=== PATIENT | female | born 1965 | race Caucasian/White ===

== ENCOUNTER 2018-01-10 10:17 | Emergency (ER) | payer OTHER ==
[~2018-01-10] VITALS: Ht 162.6 cm; Wt 165.0 kg
[~2018-01-10 10:17] MED LIST: BENTYL10 MG PO; BUPROPION XL300 MG PO; CLARITIN10 MG PO; LOVASTATIN40 MG PO; OMEPRAZOLE40 MG PO; PEPCID20 MG PO; VITAMIN D35000 UNI1 PO
== END 2018-01-10 12:15 | disposition home or self-care (01) ==
LOC: ED 10:17
DX: S09.90XA Unspecified injury of head, initial encounter (principal); S30.0XXA Contusion of lower back and pelvis, initial encounter; K21.9 Gastro-esophageal reflux disease without esophagitis; E78.00 Pure hypercholesterolemia, unspecified; Z88.5 Allergy status to narcotic agent; Z88.8 Allergy status to other drugs, medicaments and biological substances; W10.9XXA Fall (on) (from) unspecified stairs and steps, initial encounter
CPT/HCPCS: 70450; 72220; 73130; 73590; 99284

== ENCOUNTER 2019-04-11 14:30 | Emergency (ER) | payer OTHER ==
[~2019-04-11] VITALS: Ht 160 cm; Wt 77.6 kg
[~2019-04-11 14:30] MED LIST changes: +LIPITOR10 MG PO; +VITAMIN D50000 UNI1 PO
[2019-04-11] MEDS ORDERED: TYLENOL325 M1 PO (14:45)
--- NOTE | 2019-04-11 16:03 | EKG ---
[facility] [address] [facility] [place], [place] [address] Signed Normal sinus rhythm Nonspecific T wave abnormality Abnormal ECG No previous ECGs available Confirmed by EVGENY TRINH MD ([id number] on 04/11/2019 4:03:19 PM Electronically Signed By: EVGENY TRINH MD 04/11/19 1603 PATIENT NAME: CONSUELO GOMEZ Electrocardiogram DATE OF : 69 PHYSICIAN: EVGENY TRINH MD REPORT #: [id number] REPORT IS CONFIDENTIAL AND NOT TO BE RELEASED WITHOUT AUTHORIZATION
[2019-04-11] MEDS ORDERED: CLARITIN10 MG PO (16:40)
[2019-04-11] MEDS ORDERED: VENTOLIN HFA18 GM INH (16:40)
[2019-04-11] MEDS ORDERED: OMEPRAZOLE20 MG PO (16:40)
== END 2019-04-11 17:10 | disposition home or self-care (01) ==
LOC: ED 14:30
DX: R07.89 Other chest pain (principal); K21.9 Gastro-esophageal reflux disease without esophagitis; R05 Cough; J45.909 Unspecified asthma, uncomplicated; E78.00 Pure hypercholesterolemia, unspecified; F41.9 Anxiety disorder, unspecified; F17.200 Nicotine dependence, unspecified, uncomplicated; Z90.710 Acquired absence of both cervix and uterus; Z90.49 Acquired absence of other specified parts of digestive tract; Z88.5 Allergy status to narcotic agent; Z88.8 Allergy status to other drugs, medicaments and biological substances; Z79.899 Other long term (current) drug therapy
CPT/HCPCS: 71046; 80053; 84484; 85025; 93005; 93010; 94640; 99285-25

== ENCOUNTER 2024-10-08 19:47 | Emergency (ER) | payer OTHER ==
[~2024-10-08] VITALS: Ht 160 cm; Wt 75.4 kg
[~2024-10-08 19:47] MED LIST changes: +OMEPRAZOLE20 MG PO; +TYLENOL325 M1 PO; +VENTOLIN HFA18 GM INH
[2024-10-08] MEDS ORDERED: ROSUVASTATIN CAL5 MG (20:02)
[2024-10-08] MEDS ORDERED: ondansetron HCL 4 MG/2 ML VIAL IV ONE (20:30)
[2024-10-08] MEDS ORDERED: MECLIZINE HCL 25 MG TAB PO ONE (20:30)
[2024-10-08 20:33] LABS: BASOPHILS 3.3 % (0-2); EOSINOPHILS 2.5 % (0-6); HEMATOCRIT 38.1 % (35.0-50.0); HEMOGLOBIN 12.7 g/dL (12.0-18.0); LYMPHOCYTES 39.6 % (24-44); MCH 30.5 (27-36); MCHC 33.3 g/dl (30-36); MCV 91.5 fl (81-99); MONOCYTES 8.2 % (0-12); NEUTROPHILS 46.4 % (39-80); PLATELET COUNT 272 K/uL (140-440); RBC 4.17 M/ul (4.3-5.7); RDW 13.7 (10.5-15.0)
[2024-10-08 20:45] LABS: PARTIAL THROMBOPLASTIN TIME 26.1 Sec (22.9-41.3)
[2024-10-08 20:46] LABS: INR 1.02 (0.80-1.30); PROTIME 12.7 Sec (11.2-14.2)
[2024-10-08 20:54] LABS: ALBUMIN 3.5 g/dL (3.4-5.0); ALBUMIN/GLOBULIN RATIO 0.88 (1.1-2.4); ALKALINE PHOSPHATASE 68 U/L (46-116); ALT (SGPT) 28 U/L (14-59); ANION GAP 11.8 (7-21); AST (SGOT) 16 U/L (15-37); BILIRUBIN, TOTAL 0.2 ng/dL (0.2-1.0); BUN/CREATININE RATIO 11.22 (6.0-28.6); CARBON DIOXIDE 29 mmol/L (21-32); CHLORIDE 104 mmol/L (98-107); CREATININE, SERUM 0.98 mg/dL (0.55-1.02); GLOMERULAR FILTRATION RATE,EST 67 mL/min (>60); POTASSIUM 3.8 mmol/L (3.5-5.1); PROTEIN, TOTAL 7.5 g/dL (6.4-8.2); UREA NITROGEN 11 mg/dL (7-18)
[2024-10-08 21:34] LABS: BILIRUBIN, URINE NEGATIVE (negative); BLOOD/HGB, URINE NEGATIVE (Negative); KETONE, URINE NEGATIVE (Negative); LEUK ESTERASE, URINE NEGATIVE (negative); NITRITE, URINE NEGATIVE (negative)
[2024-10-08 21:49] LABS: AMPHETAMINES, URINE NEGATIVE (NEGATIVE); BARBITURATES, URINE NEGATIVE (NEGATIVE); BENZODIAZEPINE, URINE NEGATIVE (NEGATIVE); BUPRENORPHINE, URINE NEGATIVE (NEGATIVE); CANNABINOID, URINE NEGATIVE (NEGATIVE); COCAINE, URINE NEGATIVE (NEGATIVE); ECSTASY, URINE NEGATIVE (NEGATIVE); FENTANYL, URINE NEGATIVE (NEGATIVE); METHADONE, URINE NEGATIVE (NEGATIVE); OPIATES, URINE NEGATIVE (NEGATIVE); OXYCODONE, URINE NEGATIVE (NEGATIVE); PHENCYCLIDINE, URINE NEGATIVE (NEGATIVE)
[2024-10-08] MEDS ORDERED: MECLIZINE HCL25 MG PO (22:10)
[2024-10-08 22:19] VITALS: BP 111/53
--- NOTE | 2024-10-09 22:46 | EKG ---
[facility] [address] [facility] [place] [address] Signed Normal sinus rhythm Nonspecific T wave abnormality Abnormal ECG When compared with ECG of 23-JUL-2023 13:45, Nonspecific T wave abnormality now evident in Anterior leads Confirmed by Richard Raphael MD () on 10/09/2024 10:46:10 PM Electronically Signed By: RICHARD RAPHAEL MD 10/09/24 2246 PATIENT NAME: CONSUELO CARRANZA Electrocardiogram DATE OF : 69 PHYSICIAN: RICHARD RAPHAEL MD REPORT #: [id number] REPORT IS CONFIDENTIAL AND NOT TO BE RELEASED WITHOUT AUTHORIZATION
== END 2024-10-08 22:18 | disposition home or self-care (01) ==
LOC: ED 19:47
PROVIDERS: Internal Medicine
DX: H81.399 Other peripheral vertigo, unspecified ear (principal); E78.00 Pure hypercholesterolemia, unspecified; K21.9 Gastro-esophageal reflux disease without esophagitis; F17.200 Nicotine dependence, unspecified, uncomplicated; Z88.5 Allergy status to narcotic agent; Z88.8 Allergy status to other drugs, medicaments and biological substances; Z79.899 Other long term (current) drug therapy
CPT/HCPCS: 36415; 70450; 70496; 70498; 71045; 80053; 80307; 81003; 84484; 85025; 85610; 85730; 93005; 93010; 99285-25; A9270; G0480; J2405; Q9967